=== PATIENT | female | born 1975 | race Caucasian/White ===

== ENCOUNTER 2017-06-16 16:23 | Emergency (ER) | payer MEDICARE ==
[~2017-06-16] VITALS: Ht 170.2 cm; Wt 118.0 kg
[~2017-06-16 16:23] MED LIST: ACTOS30 MG PO; ACTOS45 MG; ADULT ASPIRIN81 MG; AMIODARONE HCL200 MG; ASPIR 8181 MG PO; ASPIRIN325 M3 PO; ASPIRIN81 MG PO; ATENOLOL; ATENOLOL25 MG; AYGESTIN5 MG PO; CARDIZEM CD120 MG; CARVEDILOL3.125 MG PO; CIPRO250 M2 PO; COLACE100 MG PO; COREG12.5 M1 PO; COREG12.5 MG PO; COREG3.125 MG; COREG3.125 MG PO; COUMADIN2.5 MG PO; COUMADIN3 MG PO; COUMADIN5 MG PO; CYMBALTA20 MG PO; EFFIENT10 MG/TAB PO; ENDOCET 5/325 T1 TAB; EQL FISH OIL 1,1 CAP PO; FERROUS SULFAT325 MG PO; FLUOXETINE HCL20 M PO; GABAPENTIN300 MG PO; HUMALOG100 U/ML; HUMALOG100 U/ML SQ; HYDROCHLOROTHIA25 MG; IRON325 M1 PO; ISOSORBIDE MONO30 M4 PO; JANUVIA100 MG PO; KEFLEX500 M4 PO; LAMICTAL100 M2 PO; LANTUS100 U/ML; LANTUS100 U/ML SC; LANTUS100 UNITS/ SC; LEVEMIR100 UNITS/ SC; LISINOPRIL; LISINOPRIL2.5 MG; LISINOPRIL40 MG; LISINOPRIL5 MG PO; LITHIUM CA300 MG/TAB PO; LIVALO; LIVALO1 M1; LORTAB1 ML PO; NAPROSYN250 MG PO; NITROFURANTOIN100 M PO; NITROSTAT0.4 MG/TAB SL; NORCO 5-325 TA1 EACH PO; NORCO 5/325 TAB1 TAB PO; NORVASC2.5 M1 PO; NORVASC5 MG; NOVOLOG100 U/M SQ; NOVOLOG100 UNITS/ SC; OXYCODONE/APAP PO; PENICILLIN V P500 M1 PO; PERCOCET 5-3251 EACH PO; PHENERGAN12.5 MG PO; PREVACID30 MG PO; PRINIVIL40 MG; PRINIVIL5 M1 PO; RANEXA500 M1 PO; REGLAN5 MG; RISPERDAL0.25 M2 PO; SIMVASTATIN40 MG PO; SKELAXIN800 MG PO; TENORMIN25 MG; TRAZODONE50 MG; TYLENOL325 MG PO; VALTREX PO; VICODIN 5/500 T1 TAB PO; VITAMIN B; VITAMIN D-32000 UNIT PO; VITAMIN D31000 UNIT PO; WARFARIN SODIUM4 MG PO; WARFARIN SODIUM5 MG PO; WELLBUTRIN XL300 MG PO; ZETIA10 M1 PO; ZETIA10 MG PO; ZOCOR20 MG; ZOLOFT50 M1 PO
[2017-06-16 18:26] LABS: URINE APPEARANCE HAZY; URINE BILIRUBIN NEGATIVE (NEG); URINE BLOOD NEGATIVE (NEG); URINE COLOR YELLOW; URINE GLUCOSE (UA) MODERATE (NEG); URINE KETONE NEGATIVE (NEG); URINE LEUKOCYTE ESTERASE POSITIVE (NEG); URINE NITRITE NEGATIVE (NEG); URINE PROTEIN MODERATE (NEG)
[2017-06-16 18:29] LABS: BASO % 0.2 % (0-2); EOS % 3.4 % (0-7); EOSINOPHIL ABSOLUTE COUNT 0.4 tho/cmm (0.0-0.7); HCT-HEMATOCRIT 40.1 % (34.0-49.0); HGB-HEMOGLOBIN 13.7 gm/dl (12.0-15.5); IMMATURE GRANULOCYTES ABSOLUTE 0.03 tho/cmm (0-0.03); IMMATURE GRANULOCYTES PERCENT 0.3 % (0-0.3); LYMPH % 24.5 % (20-45); LYMPH ABSOLUTE COUNT 2.7 tho/cmm (0.8-4.5); MCH (MEAN CORPUSCULAR HGB) 30.4 pg (28.0-32.0); MCHC MEAN CORPUSCULAR HGB CONC 34.2 % (32.0-36.0); MCV (MEAN CELL VOLUME) 89.1 fl (82.0-96.0); MEAN PLATELET VOLUME 9.6 cmc (9.4-12.4); MONO % 6.8 % (0-12); MONOCYTE ABSOLUTE COUNT 0.8 tho/cmm (0.0-1.2); NEUTROPHIL ABSOLUTE COUNT 7.2 tho/cmm (1.6-8.0); NEUTROPHIL-AUTOMATED 7.2 tho/cmm (1.6-8.0); NEUTROPHILS % 64.8 % (40-80); PLATELET COUNT 248 tho/cmm (150-450); RED CELL DISTRIBUTION WIDTH 12.7 % (12.4-16.4)
[2017-06-16 18:31] LABS: URINE RBC 0 /[HPF] (0-5)
[2017-06-16 18:36] LABS: INR 0.9 INR (0.9-1.1); PROTHROMBIN TIME 10.8 SECONDS (9.0-13.6)
[2017-06-16 18:38] LABS: PREGNANCY-SERUM NEGATIVE (NEGATIVE)
[2017-06-16 18:50] LABS: ALB/GLOB RATIO 0.9 (0.8-2.0); ALBUMIN 3.3 g/dl (3.5-5.0); ALCOHOL (ETOH) <10 mg/dl (<10); ALKALINE PHOSPHATASE 71 U/L (33-138); ALT/SGPT 28 U/L (12-78); ANION GAP 12 mmol/L (0-20); AST/SGOT 16 U/L (10-40); BILIRUBIN,TOTAL 0.3 mg/dl (0-1.5); BLOOD UREA NITROGEN 22 mg/dl (6-24); CALCIUM 8.3 mg/dl (8.5-10.5); CARBON DIOXIDE-VENOUS 25 mmol/L (22-32); CHLORIDE 107 mmol/l (96-110); CKMB 1.1 ng/ml (<3.6); CREATINE PHOSPHOKINASE (CPK) 88 U/L (21-215); CREATININE 1.45 mg/dl (0.50-1.10); GLUCOSE 245 mg/dL (70-110); POTASSIUM 4.1 mmol/L (3.7-5.1); SODIUM 140 mmol/L (135-145); T4 (THYROXINE) 8.1 ug/dl (5.0-12.6); eGFR VALUE FOR BLACK 51 mL/Min
[2017-06-16 18:55] LABS: TSH-THYROID STIMULATING HORM. 2.18 uIU/ml (0.40-3.80)
[2017-06-16] MEDS ORDERED: TRAVEL-EASE25 M1 PO (19:30)
[2017-06-16] MEDS ORDERED: ZOFRAN ODT4 MG PO (19:30)
[2017-06-16] MEDS ORDERED: ATIVAN0.5 M1 PO (19:30)
== END 2017-06-16 19:49 ==
LOC: EDMED 16:23
PROVIDERS: Emergency Medicine
DX: H81.12 Benign paroxysmal vertigo, left ear (principal); I25.10 Atherosclerotic heart disease of native coronary artery without angina pectoris; E11.9 Type 2 diabetes mellitus without complications; E78.5 Hyperlipidemia, unspecified; I82.409 Acute embolism and thrombosis of unspecified deep veins of unspecified lower extremity; F31.9 Bipolar disorder, unspecified; Z86.718 Personal history of other venous thrombosis and embolism; Z95.1 Presence of aortocoronary bypass graft; Z95.5 Presence of coronary angioplasty implant and graft; Z90.49 Acquired absence of other specified parts of digestive tract; Z88.2 Allergy status to sulfonamides; Z79.82 Long term (current) use of aspirin; Z79.4 Long term (current) use of insulin; Z79.899 Other long term (current) drug therapy
CPT/HCPCS: G0480; J2060; J2405; J7030